=== PATIENT | female | born 1950 | race Two or more races ===

== ENCOUNTER 2025-02-21 11:06 | Inpatient (IN) | payer OTHER ==
[~2025-02-21] VITALS: Ht 152.4 cm; Wt 453.6 kg
[2025-02-21] MEDS ORDERED: NAMENDA1 EACH PO (11:27)
[2025-02-21] MEDS ORDERED: ARICEPT5 MG PO (11:27)
[2025-02-21] MEDS ORDERED: ATORVASTATIN CA20 MG PO (11:27)
[2025-02-21] MEDS ORDERED: KETAMINE IM (11:28)
[2025-02-21] MEDS ORDERED: RESTORIL30 M1 PO (11:28)
--- NOTE | 2025-02-21 11:29 | NUR ---
PTE LLEGA EN AMBULANCIA DESDE EL HOGAR POR MOVIMIENTOS INVOLUNTARIOS. PTE CON ALZAIMER , SE LE VICTOR M S/V SE UBIOCA EN JOSE RAUL.
[2025-02-21] MEDS ORDERED: SODIUM CHLORIDE 0.45 % 1,000 ML IV STA (13:02)
--- NOTE | 2025-02-21 15:02 | NUR ---
PACIENTE EN DESCANSO EN JOSE RAUL, LA MISMA DESORIENTADA CONDX DE DEMENCIA SE OBERVA LETARGICA Y NO SIGUE COMANDOS. ESTA EN COMPANIA DE FAMILIAR, EL CUAL SE ORIENTA SOBRE TRATAMIENTOS A SEGUIR. SE LE MARIAN MIESTRAS DE LAB CON MEDIDAS ASEPTICAS. SE QUEDA PENDIENTE VICTOR M DE MUESTRA DE ORINA CATH.
[2025-02-21 16:07] LABS: ALT/SGPT 65.0 U/L (12-78); AST/SGOT 46.0 U/L (15-37); BILIRUBIN TOTAL 0.59 mg/dL (0.3-1.2); BUN CREA RATIO 15.0 (7.0-25.0); CREATININE SERUM 0.98 mg/dL (0.55-1.02); GFR 55.18; GLOBULINA 3.1 G/DL (2.4-3.5); GLUCOSE FASTING 97.0 mg/dL (65-100); OSMOLALITY SERUM 288.0 MOSM/KG (275-295)
[2025-02-21] MEDS ORDERED: FAMOtidine 10 MG/ML (4ML VIAL) IV ONE (18:00)
[2025-02-21] MEDS ORDERED: CEFTRIAXONE SODIUM 1,000 MG VIAL IV ONE (18:00)
[2025-02-21] MEDS ORDERED: FAMOTIDINE/PF 20 MG/2 ML VIAL ONE (18:23)
[2025-02-21] MEDS ORDERED: ONDANSETRON HCL 2 MG/ML VIAL ONE (18:23)
[2025-02-21 18:24] LABS: BASO % 0.3 % (0.1-1.2); EOS # 0.00 (0.04-0.54); EOS % 0.0 % (0.7-7.0); LYMPH # 1.52 (1.18-3.74); LYMPH % 15.0 % (19.3-53.1); MEAN PLATELET VOLUME 11.50 fl (9.4-12.4); MONO # 0.83 (0.24-0.82); MONO % 8.2 % (4.7-12.5); NEUT # 7.73 (1.56-6.13); NEUT % 76.2 % (34.0-71.1); RED CELL DISTRIBUTION WIDTH 12.9 % (11.6-14.4)
[2025-02-21 18:28] LABS: URINE APPEARANCE Clear; URINE BILIRRUBIN Negative (NEGATIVE); URINE BLOOD Moderate; URINE COLOR Yellow; URINE GLUCOSE Negative (NEGATIVE); URINE KETONE Trace (NEGATIVE); URINE LEUKOCYTE Negative; URINE NITRATE Negative; URINE PROTEIN Trace (NEGATIVE); URINE UROBILINOGEN 0.2 E.U./dl
[2025-02-21 18:33] LABS: URINE EPITHELIAL CELLS 5.0 uL (0.0-38.8); URINE RBC 63.9 uL (0.0-20.8); URINE WBC 5.0 uL (0.0-23.2)
[2025-02-21] MEDS ORDERED: CEFTRIAXONE SODIUM 1,000 MG VIAL ONE (18:34)
[2025-02-21 18:41] LABS: URINE BACTERIA 1.1 uL (0.0-1933); URINE CAST 0.00 uL (0.0-1.40)
[2025-02-21] MEDS ORDERED: ONDANSETRON HCL 2 MG/ML VIAL IV ONE (18:45)
[2025-02-21 19:11] LABS: COVID-19 AG NEGATIVE (NEGATIVE)
[2025-02-21 22:07] LABS: PHOSPHOKINASE CREATININE 107.0 U/L (26-192)
[2025-02-21] MEDS ORDERED: LEVALBUTEROL HCL 1.25 MG/3 ML SOLUTION IH SCH (22:53)
[2025-02-22] MEDS ORDERED: LEVALBUTEROL HCL 1.25 MG/3 ML SOLUTION IH ONE ×3 (00:34→16:42)
--- NOTE | 2025-02-22 02:37 | NUR ---
SE NOTIFICA A PERSONAL DE TERAPIA SOBRE ABG'S Y SE COLOCA SONDA URINARIA 16 FR BAJANDO A GRAVEDAD.
[2025-02-22] MEDS ORDERED: CEFTRIAXONE SODIUM 1,000 MG in DEXTROSE 5 % IN WATER 100 ML IV SCH (12:24)
[2025-02-22] MEDS ORDERED: FAMOTIDINE/PF 20 MG in 0.9 % SODIUM CHLORIDE 8 ML IV PUSH SCH (12:29)
[2025-02-22] MEDS ORDERED: 0.9 % SODIUM CHLORIDE 1,000 ML IV SCH (12:30)
[2025-02-22] MEDS ORDERED: ACETAMINOPHEN 325 MG TABLET PO PRN (12:30)
[2025-02-22] MEDS ORDERED: ENOXAPARIN SODIUM 40 MG/0.4 ML SYRINGE SUBCUTANEO SCH (12:54)
[2025-02-22] MEDS ORDERED: ENOXAPARIN SODIUM 40 MG/0.4 ML SYRINGE SUBCUTANEO ONE (14:03)
[2025-02-22] MEDS ORDERED: FAMOTIDINE/PF 20 MG/2 ML VIAL ONE (14:03)
[2025-02-22] MEDS ORDERED: CEFTRIAXONE SODIUM 1,000 MG VIAL ONE (14:03)
[2025-02-22 16:06] LABS: T4 FREE 1.13 NG/ML (0.76-1.46); TSH 1.18 uIU/mL (0.358-3.74)
[2025-02-22 20:36] VITALS: BP 90/70
[2025-02-23 02:56] VITALS: BP 134/62; O2SAT 95
[2025-02-23 05:49] LABS: BASO % 0.4 % (0.1-1.2); EOS # 0.05 (0.04-0.54); EOS % 0.6 % (0.7-7.0); LYMPH # 1.26 (1.18-3.74); LYMPH % 14.9 % (19.3-53.1); MEAN PLATELET VOLUME 11.90 fl (9.4-12.4); MONO # 0.75 (0.24-0.82); MONO % 8.8 % (4.7-12.5); NEUT # 6.37 (1.56-6.13); NEUT % 75.1 % (34.0-71.1); RED CELL DISTRIBUTION WIDTH 13.4 % (11.6-14.4)
[2025-02-23 06:44] LABS: ALT/SGPT 81.0 U/L (12-78); AST/SGOT 79.0 U/L (15-37); BILIRUBIN TOTAL 0.72 mg/dL (0.3-1.2); BUN CREA RATIO 31.0 (7.0-25.0); CREATININE SERUM 0.58 mg/dL (0.55-1.02); GFR 101.07; GLOBULINA 2.6 G/DL (2.4-3.5); GLUCOSE FASTING 64.0 mg/dL (65-100); OSMOLALITY SERUM 291.0 MOSM/KG (275-295)
[2025-02-23 08:24] VITALS: BP 116/53; O2SAT 99
[2025-02-23] MEDS ORDERED: 0.9 % SODIUM CHLORIDE 10 ML VIAL IJ ONE (08:41)
[2025-02-23 19:46] VITALS: BP 107/55; O2SAT 97
[2025-02-24 03:06] VITALS: BP 133/60; O2SAT 96
[2025-02-24 06:49] LABS: BASO % 0.4 % (0.1-1.2); EOS # 0.20 (0.04-0.54); EOS % 2.7 % (0.7-7.0); LYMPH # 1.69 (1.18-3.74); LYMPH % 22.6 % (19.3-53.1); MEAN PLATELET VOLUME 12.30 fl (9.4-12.4); MONO # 0.70 (0.24-0.82); MONO % 9.4 % (4.7-12.5); NEUT # 4.84 (1.56-6.13); NEUT % 64.6 % (34.0-71.1); RED CELL DISTRIBUTION WIDTH 13.4 % (11.6-14.4)
[2025-02-24 08:36] VITALS: BP 130/64; O2SAT 95
[2025-02-24] MEDS ORDERED: CEFTRIAXONE SODIUM 2,000 MG in DEXTROSE 5 % IN WATER 100 ML IV SCH (09:00)
[2025-02-24 09:39] LABS: ALT/SGPT 74.0 U/L (12-78); AST/SGOT 56.0 U/L (15-37); BILIRUBIN TOTAL 0.52 mg/dL (0.3-1.2); BILIRUBIN,CONJUGATED 0.16 mg/dL (0.0-0.2); BUN CREA RATIO 37.0 (7.0-25.0); CREATININE SERUM 0.57 mg/dL (0.55-1.02); GFR 103.12; GLUCOSE FASTING 88.0 mg/dL (65-100); OSMOLALITY SERUM 293.0 MOSM/KG (275-295)
[2025-02-24] MEDS ORDERED: EMOLLIENT COMBINATION NO.92 2.5 OZ BOTTLE TOP SCH (13:00)
[2025-02-24 19:25] VITALS: BP 152/80
[2025-02-24 19:45] VITALS: BP 153/57
[2025-02-25 01:00] VITALS: BP 129/76; O2SAT 93
[2025-02-25 09:52] VITALS: BP 143/63; O2SAT 95
[2025-02-25 17:00] VITALS: BP 137/71; O2SAT 95
[2025-02-26 01:41] VITALS: BP 133/65; O2SAT 94
[2025-02-26 09:34] VITALS: BP 133/63; O2SAT 95
[2025-02-26] MEDS ORDERED: MAGNESIUM SULFATE 1,000 MG in 0.9 % SODIUM CHLORIDE 50 ML IV NR (11:00)
[2025-02-26] MEDS ORDERED: POTASSIUM CHLORIDE IN WATER 100 ML IV SCH (12:00)
[2025-02-26 16:53] VITALS: BP 146/70; O2SAT 99
[2025-02-27] MEDS ORDERED: POTASSIUM CHLORIDE IN WATER 100 ML IV SCH
[2025-02-27 01:43] VITALS: BP 141/70; O2SAT 94
[2025-02-27 08:40] VITALS: BP 166/65; O2SAT 95
== END 2025-02-27 10:02 | disposition home or self-care (01) | DRG 101 ==
LOC: ER 11:06 → SEC-K 02-22 14:14 → MEDJ 02-22 14:14 → MEDI 02-22 14:14 → MEDJ 02-22 16:37 → MEDI 02-23 13:02
PROVIDERS: General Practice; Student in an Organized Health Care Education/Training Program; ADMIT Specialist; ATTEND Specialist
PROC: B020ZZZ Computerized Tomography (CT Scan) of Brain (ICD-10-PCS; principal; 2025-02-21)
PROC: BB24ZZZ Computerized Tomography (CT Scan) of Bilateral Lungs (ICD-10-PCS; 2025-02-21)
PROC: B030ZZZ Magnetic Resonance Imaging (MRI) of Brain (ICD-10-PCS; 2025-02-22)
PROC: 4A12X4Z Monitoring of Cardiac Electrical Activity, External Approach (ICD-10-PCS; 2025-02-22)
DX: G40.89 Other seizures (principal); D72.829 Elevated white blood cell count, unspecified; G30.8 Other Alzheimer's disease; G31.89 Other specified degenerative diseases of nervous system; F02.C0 Dementia in other diseases classified elsewhere, severe, without behavioral disturbance, psychotic disturbance, mood disturbance, and anxiety; J44.9 Chronic obstructive pulmonary disease, unspecified; E87.6 Hypokalemia; L89.151 Pressure ulcer of sacral region, stage 1; L89.322 Pressure ulcer of left buttock, stage 2; I10 Essential (primary) hypertension; E78.5 Hyperlipidemia, unspecified; Z74.01 Bed confinement status
CPT/HCPCS: 70551